=== PATIENT | male | born 1975 | race Caucasian/White ===

== ENCOUNTER 2016-11-01 22:30 | Emergency (ER) | payer BC, OTHER ==
[~2016-11-01] VITALS: Ht 170.2 cm; Wt 73.0 kg
[~2016-11-01 22:30] MED LIST: HYDR-3498 PO; OMEP20CA9 PO
[2016-11-01 22:33] VITALS: Ht 170.2 cm; Wt 73.0 kg
[2016-11-02] MEDS ORDERED: ASPIRIN 325 MG TAB PO STA (00:19)
[2016-11-02 00:59] VITALS: RESP 18
--- NOTE | 2016-11-02 00:59 | RADRPT ---
PROCEDURE: Chest. CLINICAL INDICATION: Chest pain. TECHNIQUE: Single frontal view of the chest was obtained. COMPARISON: None. FINDINGS: The cardiac silhouette is magnified. The aortic arch is unremarkable. There is no focal consolidat ion, vascular congestion or pleural effusion. There is no pneumothorax. IMPRESSION: No evidence for active cardiopulmonary disease. .Tom Pulliam MD, MD Date Time Electronically viewed and signed by .Tom Pulliam MD, on 11/02/2016 00:59 .T/
[2016-11-02 01:09] LABS: CHLORIDE 102 mmol/L (97-110); POTASSIUM 4.7 mmol/L (3.5-5.1); SODIUM 139 mmol/L (135-144)
[2016-11-02 01:10] LABS: INR 0.96; PROTIME 12.8 Sec (12.2-14.2)
[2016-11-02 01:11] LABS: PARTIAL THROMBOPLASTIN TIME 26.3 Sec (25.0-35.0)
[2016-11-02 01:12] LABS: ANION GAP 22 (8-16); CARBON DIOXIDE 20 mmol/L (21-31); CREATININE 0.96 mg/dl (0.61-1.24)
[2016-11-02 01:13] LABS: BLOOD UREA NITROGEN 16 mg/dl (7-20); CALCIUM 9.3 mg/dl (8.4-10.2); GLUCOSE 99 mg/dl (70-220)
[2016-11-02 01:20] LABS: B-TYPE NATRIURETIC PEPTIDE 33 PG/ML (0-125)
[2016-11-02 01:25] LABS: TROPONIN-I < 0.010 ng/ml (0.00-0.12)
[2016-11-02 01:29] LABS: BASOPHILS % 0.1 % (0.0-2.0); EOSINOPHILS % 0.2 % (0.0-7.0); HEMATOCRIT 41.4 % (42.0-52.0); HEMOGLOBIN 14.3 g/dl (14.0-18.0); LYMPHOCYTES # 1.4 10^3/ul (0.8-2.9); LYMPHOCYTES % 10.6 % (15.0-51.0); MEAN CORPUSCULAR HEMOGLOBIN 32.1 pg (29.0-33.0); MEAN CORPUSCULAR HGB CONC 34.5 g/dl (32.0-37.0); MEAN CORPUSCULAR VOLUME 93.1 fl (82.0-101.0); MONOCYTE # 1.5 10^3/ul (0.3-0.9); MONOCYTES % 11.2 % (0.0-11.0); NEUTROPHIL # 10.6 10^3/ul (1.6-7.5); NEUTROPHILS % 77.9 % (39.0-77.0); PLATELET COUNT 173 10^3/UL (140-440); RED BLOOD COUNT 4.45 10^6/ul (4.70-6.10); UNCORRECTED WBC 13.6 10^3/ul (4.8-10.8); WHITE BLOOD COUNT 13.6 10^3/ul (4.8-10.8)
[2016-11-02 01:30] LABS: CONDITION 1
[2016-11-02] MEDS ORDERED: LIDOCAINE/MYLANTA 40 ML BTL PO ONE (01:30)
[2016-11-02] MEDS ORDERED: AMO500 PO (03:10)
[2016-11-02] MEDS ORDERED: NAPR-688 PO (03:10)
[2016-11-02] MEDS ORDERED: BENZ100C70 PO (03:10)
--- NOTE | 2016-11-02 03:20 | ERD ---
ER Documentation Chief Complaint Date/Time DATE: 11/02/16 TIME: 03:12 Chief Complaint cp x 1 hr HPI 41-year-old male presents with chest pain has been present for about an hour. He had cough for the last few days and is felt generally weak. States that he has had pain like this before and was diagnosed with early rebound polarization and no other problems. Denies shortness of breath. Denies nausea and vomiting. ROS All systems reviewed and are negative except as per history of present illness. Medications Home Meds Active Scripts Azithromycin* (Azithromycin*) 500 Mg Tablet, 500 MG PO DAILY, #3 TAB Prov:EDWIN BARRON DO 11/02/16 Naproxen* (Naproxen*) 500 Mg Tablet, 500 MG PO BID, #20 TAB Prov:EDWIN BARRON DO 11/02/16 Benzonatate* (Tessalon Perle*) 100 Mg Capsule, 100 MG PO Q8H Y for COUGH, #20 CAP Prov:ANDERSONEDWIN DO 11/02/16 Amoxicillin* (Amoxicillin*) 500 Mg Cap, 500 MG PO TID for 10 Days, CAP Prov:ANDERSONEDWIN 11/02/16 Hydrocodone Bit-Acetaminophen* ([place]*) 5-325 Mg Tab, 1 TAB PO Q6 Y for PAIN, # 20 TAB Prov:JORGE PHELPS MD 04/12/15 Omeprazole* (Prilosec*) 20 Mg Capsule.dr, 20 MG PO BID for 14 Days, CAP Prov:JORGE PHELPS MD 04/12/15 Allergies Allergies: Coded Allergies: No Known Drug Allergies (Verified Allergy, Mild, 04/12/15) PMhx/Soc Medical and Surgical Hx: pt denies Surgical Hx History of Surgery: No Anesthesia Reaction: No Hx Neurological Disorder: No Hx Respiratory Disorders: No Hx Cardiac Disorders: No Hx Psychiatric Problems: No Hx Miscellaneous Medical Probl: Yes (HEP C) Hx Alcohol Use: No Hx Substance Use: Yes (marijuana) Hx Tobacco Use: Yes Smoking Status: Former smoker Physical Exam Vitals Vital Signs Date Time Temp Pulse Resp B/P Pulse Ox O2 Delivery O2 Flow Rate FiO2 11/02/16 00:59 98.6 86 18 133/83 100 Room Air 11/01/16 22:33 98.9 104 18 141/83 98 Physical Exam Const: [] No distress Head: Atraumatic Eyes: Normal Conjunctiva ENT: Normal External Ears, Nose and Mouth. Neck: Full range of motion..~ No meningismus. Resp: Clear to auscultation bilaterally, coughs on exam Cardio: Regular rate and rhythm, no murmurs Abd: Soft, non tender, non distended. Normal bowel sounds Skin: No petechiae or rashes Back: No midline or flank tenderness Ext: No cyanosis, or edema Neur: Awake and alert and oriented 3, no focal deficits Psych: Normal Mood and Affect Result Diagram: 11/02/164611/02/1646 Results 24 hrs Laboratory Tests Test 11/02/16 00:47 Activated Partial Thromboplast Time 26.3Sec Anion Gap 22 B-Type Natriuretic Peptide 33PG/ML Basophils # 0.010^3/ul Basophils % 0.1% Blood Urea Nitrogen 16mg/dl Calcium Level 9.3mg/dl Carbon Dioxide Level 20mmol/L Chloride Level 102mmol/L Creatinine 0.96mg/dl Eosinophils # 0.010^3/ul Eosinophils % 0.2% Glucose Level 99mg/dl Hematocrit 41.4% Hemoglobin 14.3g/dl INR International Normalized Ratio 0.96 Lymphocytes # 1.410^3/ul Lymphocytes % 10.6% Mean Corpuscular Hemoglobin 32.1pg Mean Corpuscular Hemoglobin Concent 34.5g/dl Mean Corpuscular Volume 93.1fl Mean Platelet Volume 9.0fl Monocytes # 1.510^3/ul Monocytes % 11.2% Neutrophils # 10.610^3/ul Neutrophils % 77.9% Nucleated Red Blood Cells # 0.010^3/ul Nucleated Red Blood Cells % 0.0/100WBC Platelet Count 82897^3/UL Potassium Level 4.7mmol/L Prothrombin Time 12.8Sec Prothrombin Time Ratio 1.0 Red Blood Count 4.4510^6/ul Red Cell Distribution Width 13.0% Sodium Level 139mmol/L Troponin I < 0.010ng/ml White Blood Count 13.610^3/ul Current Medications Medications (Trade) Dose Ordered Sig/Roberto Route PRN Reason Start Time Stop Time Status Last Admin Dose Admin Aspirin (Aspirin) 325 mg ONCE STAT PO 11/02/16 00:19 11/02/16 00:21 DC 11/02/16 00:57 Miscellaneous Medication (Gi Cocktail (2)) 40 ml ONCE ONCE PO 11/02/16 01:30 11/02/16 01:31 DC 11/02/16 01:46 Procedures/MDM Likely bronchitis and 41-year-old male. Has elevated white blood cell count isn' t having cough in the emergency room. I doubt acute coronary syndrome is causing the chest pain as patient has a nonischemic EKG and negative troponin. He also has no risk factors for cardiac disease. Did develop a low-grade fever in the ER as well. He was given aspirin for chest pain. Is well-appearing with no signs of sepsis. I'm going to discharge him with amoxicillin, azithromycin, Tessalon Perles and naproxen. Also recommended he get an echocardiogram from his primary care doctor which she says that he has good follow-up to make sure that his heart motion and valves are normal. Starting with primary care follow up in the next couple of days as well as return precautions to the ER for any worsening or concerning symptoms. EKG interpretation: Normal sinus rhythm rate of 92, normal axis, no ST-T wave changes concerning for acute ischemia, normal intervals. Normal EKG school lunch monitor interpretation: Normal sinus rhythm without arrhythmia Chest interpretation: I see no acute process, no widened mediastinum, no pneumothorax no infiltrate no pulmonary edema no fractures Departure Diagnosis: Primary Impression: Bronchitis Additional Impression: Chest pain Condition: Stable Patient Instructions: Bronchitis, Antiobiotic Treatment (Adult), Chest Pain, Uncertain Cause Additional Instructions: Call your primary care doctor TOMORROW for an appointment during the next 2-3 days. Get an appointment for an ECHOCARDIOGRAM. See the doctor sooner or return here if your condition worsens before your appointment time. EDWIN BARRON DO Nov 02, 2016 03:20
[2016-11-02] MEDS ORDERED: AZIT500T5 PO (03:21)
[2016-11-02 03:22] VITALS: BP 148/81; PULSE 99; TEMP 101
== END 2016-11-02 03:25 | disposition home or self-care (01) ==
LOC: E/R 22:30
DX: J20.9 Acute bronchitis, unspecified (principal); R06.02 Shortness of breath; Z87.891 Personal history of nicotine dependence
CPT/HCPCS: 71010; 80048; 83880; 84484; 85025; 85610; 85730; Z7610; 36415; 93005

== ENCOUNTER 2016-11-15 21:56 | Emergency (ER) | payer OTHER ==
[~2016-11-15] VITALS: Ht 167.6 cm; Wt 77.0 kg
[~2016-11-15 21:56] MED LIST changes: +AMO500 PO; +AZIT500T5 PO; +BENZ100C70 PO; +NAPR-688 PO
[2016-11-15 21:59] VITALS: Ht 167.6 cm; Wt 77.0 kg
[2016-11-16] MEDS ORDERED: BEN25 PO (01:23)
[2016-11-16 02:19] VITALS: BP 121/70; PULSE 62; RESP 18; TEMP 98.2
--- NOTE | 2016-11-16 02:38 | ERD ---
ER Documentation Chief Complaint Date/Time DATE: 11/16/16 TIME: 02:30 Chief Complaint took medical marijuana yesterday, lips hurting since yesterrday, no sob HPI 41-year-old male with a past medical history of hepatitis C presents the ED complaining of burning lips and burning tongue after eating edible marijuana. States that he feels like he got a reaction from eating edibles. States that this is a new strain of marijuana that he was eating. Denies any fever, chills , abdominal pain, nausea, vomiting, headache, numbness or tingling. States that he uses marijuana daily. States that the marijuana was mixed with other synthetic strains. Denies any alcohol or smoking any cigarettes. ROS All systems reviewed and are negative except as per history of present illness. Medications Home Meds Active Scripts Diphenhydramine Hcl* (Benadryl*) 25 Mg Cap, 25 MG PO Q6, #30 CAP Prov:ROWENA OH PA-C 11/16/16 Azithromycin* (Azithromycin*) 500 Mg Tablet, 500 MG PO DAILY, #3 TAB Prov:EDWIN BARRON DO 11/02/16 Naproxen* (Naproxen*) 500 Mg Tablet, 500 MG PO BID, #20 TAB Prov:EDWIN BARRON DO 11/02/16 Benzonatate* (Tessalon Perle*) 100 Mg Capsule, 100 MG PO Q8H Y for COUGH, #20 CAP Prov:ANDERSONEDWIN DO 11/02/16 Amoxicillin* (Amoxicillin*) 500 Mg Cap, 500 MG PO TID for 10 Days, CAP Prov:EDWIN BARRON DO 11/02/16 Hydrocodone Bit-Acetaminophen* (Opp*) 5-325 Mg Tab, 1 TAB PO Q6 Y for PAIN, # 20 TAB Prov:JORGE PHELPS MD 04/12/15 Omeprazole* (Prilosec*) 20 Mg Capsule.dr, 20 MG PO BID for 14 Days, CAP Prov:JORGE PHELPS MD 04/12/15 Allergies Allergies: Coded Allergies: No Known Drug Allergies (Verified Allergy, Mild, 04/12/15) PMhx/Soc History of Surgery: No Anesthesia Reaction: No Hx Neurological Disorder: No Hx Respiratory Disorders: No Hx Cardiac Disorders: No Hx Psychiatric Problems: No Hx Miscellaneous Medical Probl: Yes (HEP C) Hx Alcohol Use: No Hx Substance Use: Yes (marijuana) Hx Tobacco Use: Yes Smoking Status: Current every day smoker Physical Exam Vitals Vital Signs Date Time Temp Pulse Resp B/P Pulse Ox O2 Delivery O2 Flow Rate FiO2 11/16/16 02:19 98.2 62 18 121/70 100 Room Air 11/15/16 21:59 97.2 77 20 113/56 100 Physical Exam Const: [id number], well-nourished. In no acute distress. Head: Atraumatic, normocephalic Eyes: Normal Conjunctiva without injection. No purulent discharge. PERRLA. EOMI ENT: Normal external ear. Ear canal without erythema. Tympanic membrane pearly clark without effusion or bulging. Nasal canal clear with normal turbinates. Moist oropharynx without tonsillar exudates. Non-erythematous pharynx. Uvula midline. No vesicles or ulcers noted. No drooling. No trismus. Neck: No cervical midline tenderness. Full range of motion. No meningismus. No cervical lymphadenopathy. No JVD. Resp: Clear to auscultation bilaterally. No wheezing, rhonchi, rales, or crackles. No accessory muscle use. No retractions. Cardio: Regular rate and rhythm. No murmurs, rubs or gallops. Abd: Soft, non tender, non distended. Normal bowel sounds. No palpable masses. No rebound tenderness. No guarding. Negative McBurney's Point. Negative Gutierrez's Sign. Skin: Normal skin turgor. No petechiae or rashes Back: No midline tenderness. No CVA tenderness. Ext: No cyanosis, or edema. Distal pulses intact bilaterally. Cap refill < 2 seconds. Neur: Awake and alert. Normal gait. Normal coordination. Cranial Nerves II- VII intact. Normal finger to nose. Muscle strength 5/5. Sensation intact. Psych: Normal Mood and Affect Procedures/MDM 41 year old male with a past medical history of hepatitis C presents to the ED complaining of burning and itching sensations of his lips and tongue after eating marijuana at a pulse. Patient is afebrile nontoxic appearing. Patient has normal vital signs. Patient symptoms could likely be due to a allergic reaction to the marijuana edible strain that patient ate. Low suspicion for acute myocardial infarction, pneumothorax, pneumonia, cardiac tamponade, pulmonary embolism, AAA, aortic dissection, Boerhaave's syndrome, cardiac dysrhythmias,meningitis, intracranial bleed, seizure, stroke, TIA or other emergent conditions. Discharge medications: Benadryl Follow up with primary care physician in 1-2 days. Instructed patient to return to the ED sooner for any worsening symptoms. Patient's questions were answered. Patient understood and agreed with discharge plan. Patient discharged stable. Departure Diagnosis: Primary Impression: Marijuana use Condition: Stable Patient Instructions: Marijuana Abuse Referrals: [facility] YOU HAVE RECEIVED A MEDICAL SCREENING EXAM AND THE RESULTS INDICATE THAT YOU DO NOT HAVE A CONDITION THAT REQUIRES URGENT TREATMENT IN THE EMERGENCY DEPARTMENT. FURTHER EVALUATION AND TREATMENT OF YOUR CONDITION CAN WAIT UNTIL YOU ARE SEEN IN YOUR DOCTORS OFFICE WITHIN THE NEXT 1-2 DAYS. IT IS YOUR RESPONSIBILITY TO MAKE AN APPOINTMENT FOR FOLOW-UP CARE. IF YOU HAVE A PRIMARY DOCTOR --you should call your primary doctor and schedule an appointment IF YOU DO NOT HAVE A PRIMARY DOCTOR YOU CAN CALL OUR PHYSICIAN REFERRAL HOTLINE AT IF YOU CAN NOT AFFORD TO SEE A PHYSICIAN YOU CAN CHOSE FROM THE FOLLOWING [facility] [address] [facility]. [facility] [address] [facility]. [facility] [address] [facility] [facility] [address] [facility]. [facility] [address] [facility]. [facility]. [address] [facility] [facility] YOU HAVE RECEIVED A MEDICAL SCREENING EXAM AND THE RESULTS INDICATE THAT YOU DO NOT HAVE A CONDITION THAT REQUIRES URGENT TREATMENT IN THE EMERGENCY DEPARTMENT. FURTHER EVALUATION AND TREATMENT OF YOUR CONDITION CAN WAIT UNTIL YOU ARE SEEN IN YOUR DOCTORS OFFICE WITHIN THE NEXT 1-2 DAYS. IT IS YOUR RESPONSIBILITY TO MAKE AN APPOINTMENT FOR FOLOW-UP CARE. IF YOU HAVE A PRIMARY DOCTOR --you should call your primary doctor and schedule and appointment IF YOU DO NOT HAVE A PRIMARY DOCTOR YOU CAN CALL OUR PHYSICIAN REFERRAL HOTLINE AT . IF YOU CAN NOT AFFORD TO SEE A PHYSICIAN YOU CAN CHOSE FROM THE FOLLOWING [facility] INSTITUTIONS: [facility] [address] [place] [address] [facility] [address] [place] [address] [facility] [address] [place] [address] [facility] Additional Instructions: FOLLOW UP WITH YOUR PRIMARY CARE PHYSICIAN TOMORROW.Return to this facility if you are not improving as expected. ROWENA OH PA-C Nov 16, 2016 02:38
== END 2016-11-16 02:19 | disposition home or self-care (01) ==
LOC: FTE 21:56
DX: F12.90 Cannabis use, unspecified, uncomplicated (principal); F17.210 Nicotine dependence, cigarettes, uncomplicated
CPT/HCPCS: 99283

== ENCOUNTER 2017-09-28 12:47 | Day surgery (SDC) | payer OTHER ==
[~2017-09-28] VITALS: Ht 170.2 cm; Wt 71.6 kg
[~2017-09-28 12:47] MED LIST changes: -AMO500 PO; +AMOX500C2 PO; +BEN25 PO
[2017-09-28 14:40] VITALS: Ht 170.2 cm; Wt 71.6 kg
[2017-09-28] MEDS ORDERED: NO MEDS. (14:50)
[2017-09-28] MEDS ORDERED: PROPOFOL 40 ML ONE (15:57)
[2017-09-28] MEDS ORDERED: LIDOCAINE 2% (SDV) 5 ML INJ ONE (15:57)
[2017-09-28 16:12] VITALS: BP 128/67; PULSE 44; RESP 19
[2017-09-28 16:20] VITALS: BP 109/57; PULSE 65; RESP 23
--- NOTE | 2017-09-28 16:21 | OPPN ---
Date/Time of Note Date/Time of Note DATE: 09/28/17 TIME: 16:18 Proc Note GI Procedure Date 09/28/17 Indication: other (Dyspepsia) Pre-procedure Diagnosis Dyspepsia Post-procedure Diagnosis Impression: Mild distal esophagitis. Moderate gastritis. Rule out H. pylori infection. Biopsies obtained Otherwise normal EGD. Plan: PPI therapy Review pathology Follow-up as previously scheduled . Procedure Performed: Endoscopy (With biopsies) Surgeon see signature line Ruby Engineer none Anesthesia Type: MAC Anesthesiologist: UCHE PHIPPS Tourniquet Time none EBL none Transfusion required none Biopsy 1: Gastric body and antrum Grafts/Implants none Tubes/Drains none Complication(s) none Disposition: home Procedure Description After informed consent, with the patient/relatives understanding the procedure, its indications, potential risks and complications, including but not limited to : allergic reaction, bleeding, perforation or infection, and after all pertinent questions were answered to the patients satisfaction, the patient/ relatives signed witnessed informed consent. Following this, premedication was administered slowly IV push under careful cardiovascular and respiratory monitoring with pulse oximetry, automatic blood pressure, and card runner. Once the sedative effect was achieved the patient was place in the left lateral decubitus, the panendoscope was introduced and advanced under visual control. Careful examination of the upper gastrointestinal tract, both on insertion as well as withdrawal of the instrument disclosing the following findings: ESOPHAGUS: the mucosa of the entire esophagus was carefully examined and showed the following findings: There is mild erythema and edema of the mucosa at the esophagogastric junction. Otherwise the mucosa appears within normal limits. There is no evidence of varices, neoplasm, or stricture. No Hiatal Hernia identified. STOMACH: Upon entrance to the stomach air was insufflated, the gastric grissom distended normally. The mucosa of the fundus, body and antrum of the stomach was carefully examined both head-on and on retroflexion, and showed the following findings: There is moderate erythema and edema the mucosa of the body and antrum of the stomach. Biopsies were obtained to rule out H. pylori infection. Otherwise the mucosa appears within normal limits with no abnormalities. There is no evidence of ulcers or neoplasm. PYLORUS: The pylorus was carefully examined and showed the following findings: the pylorus appears patent and within normal limits, with no evidence of gastric outlet obstruction. DUODENUM: The duodenal mucosa was carefully examined in the duodenal bulb as well as the second portion of the duodenum and showed the following findings: the mucosa appears unremarkable with no evidence of duodenitis, ulcer or neoplasm. Copies To: CC: KRISTEN SETHI MD, MORDO MD Sep 28, 2017 16:21
[2017-09-28 17:00] VITALS: BP 116/66; RESP 20
== END 2017-09-28 20:15 | disposition home or self-care (01) ==
LOC: GIL 12:47
PROVIDERS: ATTEND Internal Medicine Gastroenterology
DX: K29.50 Unspecified chronic gastritis without bleeding (principal); K20.9 Esophagitis, unspecified
CPT/HCPCS: 43239; 88305; 88312; Z7610